=== PATIENT | female | born 1975 | race Caucasian/White ===

== ENCOUNTER 2020-04-27 16:39 | Emergency (ER) | payer OTHER, SELFPAY ==
[2020-04-27 17:01] VITALS: BP 186/105; PULSE 107; RESP 16; TEMP 37; O2SAT 98; BMI 48.4
--- NOTE | 2020-04-27 17:27 | HMH.EDUTC ---
[facility] [place] Disposition Clinical Impression: Left otitis media Qualifiers: Otitis media type: suppurative Chronicity: acute Recurrence: non-recurrent Spontaneous tympanic membrane rupture: without spontaneous rupture Qualified Code(s): H66.002 - Acute suppurative otitis media without spontaneous rupture of ear drum, left ear Pharyngitis Qualifiers: Pharyngitis/tonsillitis etiology: unspecified etiology Qualified Code(s): J02.9 - Acute pharyngitis, unspecified Disposition: Home, Self-Care Condition on Discharge: Good Instructions: Middle Ear Infection Additional Instructions: Drink plenty of fluids. Take tylenol or ibuprofen for pain or fever. Take the medications as directed. Follow up with your regular doctor. GO TO THE ER FOR ANY WORSENING SYMPTOMS Prescriptions: Cefdinir [Omnicef 300mg Capsule] 300 mg PO BID #20 cap Transmission Status: Received by [facility] Referrals: Fabrizio Perez MD [Primary Care Provider] - Time of Disposition: 17:39 Medical Decision Making - Medical Records Medical records reviewed: No: I reviewed the patient's medical records. - Ze Inquiry Pt receiving controlled substance: No Vital Signs: 04/27/20 17:01 04/27/20 17:46 Temperature 98.6 F 98.6 F Temperature Source Oral Pulse Rate 89 Pulse Rate [Left] 107 H Respiratory Rate 16 17 Blood Pressure 154/89 H Blood Pressure [Right Arm] 186/105 H Blood Pressure Mean [Right Arm] 132 Blood Pressure Source [Right Arm] Automatic Cuff Blood Pressure Position [Right Arm] Sitting 02 Sat by Pulse Oximetry 98 Oxygen Delivery Method Room Air [facility] [place] HPI - General Stated complaint: l ear pain,throat Time Seen by Provider: 04/27/20 17:31 Mode of Arrival: Ambulatory Source of Information: Patient Limitations: No Limitations Description of Symptoms (Recalled from Triage Doc. by RN): Left ear and tonsil pain when I swallow HEENT Symptoms (Recalled from RN notes): Yes Resp Symptoms (Recalled from RN notes): No Skin Symptoms (Recalled from RN notes): No MS Symptoms (Recalled from RN notes): No Functional Status (Recalled from RN notes): wnl - History of Present Illness Provider Complaint: She c/o left ear pain and sore throat for the past 3 days. - Related Data Home Medications Medication Instructions Recorded Confirmed Amitriptyline HCl [Elavil 25mg 25 mg PO DAILY 05/18/18 05/18/18 tablet] Buspirone HCl [Buspar 5mg tablet] 5 mg PO BID 05/18/18 05/18/18 Loratadine [Claritin 10mg 10 mg PO DAILY 05/18/18 05/18/18 Tablet] Montelukast Sodium [Montelukast 10 mg PO HS 05/18/18 05/18/18 10mg Tab] Sertraline HCl [Zoloft 100mg 150 mg PO DAILY 05/18/18 05/18/18 tablet] Previous Rx's Medication Instructions Recorded Azithromycin [Z-Steven 250mg Tab*] 250 mg PO UD DOSE PK #6 tab 06/19/18 Fluticasone Propionate [Flonase 2 spr NS DAILY #1 bottle 06/19/18 50mcg nasal spray 16gm] predniSONE [Prednisone 5mg Tab 5 mg PO UD DOSE PK #21 pack 06/19/18 Dose-Pack] Cefdinir [Omnicef 300mg Capsule] 300 mg PO BID #20 cap 04/27/20 Allergies Allergy/AdvReac Type Severity Reaction Status Date / Time acetaminophen Allergy Severe S-ANAPHYLAX Verified 04/27/20 17:08 [From TYLENOL-CODEINE #3] IS codeine Allergy Severe S-ANAPHYLAX Verified 04/27/20 17:08 [From TYLENOL-CODEINE #3] IS erythromycin base Allergy Unknown I-RASH Verified 04/27/20 17:08 [ERYTHROMYCIN BASE] Macrolide Antibiotics Allergy Unknown I-RASH Verified 04/27/20 17:08 [MACROLIDE ANTIBIOTICS] oxaprozin [From DAYPRO] Allergy Unknown NA-NAUSEA/V Verified 04/27/20 17:08 OMITING Penicillins [PENICILLINS] Allergy Unknown I-RASH Verified 04/27/20 17:08 - Worker's Comp Is this a Worker's Comp case?: No Is this an [facility] Worker's Comp?: No Is this a [facility] Worker's Comp?: No H History - Hepatitis A Screen Drug use history?: No High risk sexual behaviors?: No History of sexually transmitted infection?:
[2020-04-27 17:46] VITALS: BP 154/89; PULSE 89; RESP 17; TEMP 37
== END 2020-04-27 17:47 | disposition home or self-care (01) ==
PROVIDERS: Emergency Provider Nurse Practitioner Family; PCP Family Medicine
DX: H66.002 Acute suppurative otitis media without spontaneous rupture of ear drum, left ear (principal); J02.9 Acute pharyngitis, unspecified; F41.8 Other specified anxiety disorders; E03.9 Hypothyroidism, unspecified; Z88.0 Allergy status to penicillin; Z88.5 Allergy status to narcotic agent; Z79.899 Other long term (current) drug therapy
CPT/HCPCS: 99201

== ENCOUNTER → 2020-07-07 13:59 | Outpatient (CLI) | payer OTHER, SELFPAY ==
--- NOTE | 2020-07-07 14:04 | XR_ITS ---
PROCEDURE: XR LUMBAR SPINE MIN 4V CLINICAL INDICATION: LOW BACK PAIN COMPARISON: No exams were available for comparison FINDINGS: There is normal curvature and alignment. All lumbar vertebrae appear intact. There is minor osteophytic spurring at the L2-3 level and the anterior superior border of L4. There is no pars defect. SI joints are normal. There are moderate hypertrophic facet changes at the L4-5 and L5-S1 levels. IMPRESSION: Hypertrophic facet changes lower lumbar spine and minor degenerate disc disease L2-3 Dictated by: Dr. Jose Gabriel MD 07/07/2020 14:29 Dr. Jose Gabriel MD in [place] 07/07/2020 14:29
== END ==
PROVIDERS: PCP Family Medicine; Visit Provider Family Medicine
DX: M54.5 Low back pain (principal)
CPT/HCPCS: 72110

== ENCOUNTER → 2021-01-20 09:00 | Outpatient (CLI) | payer OTHER, SELFPAY ==
--- NOTE | 2021-01-20 09:01 | MR_ITS ---
PROCEDURE: MR LUMBAR SPINE WO CON CLINICAL INDICATION: LOW BACK PAIN, LUMBAR DEGENERATIVE DISC DISEASE COMPARISON: CR XR LUMBAR SPINE MIN 4V from 07/07/2020 TECHNIQUE: Standard multiplanar multiecho sequences are performed without contrast. 3-D MIP and myelographic images are also rendered and reviewed FINDINGS: There is normal alignment. The spinal cord ends at the L1 level. No acute fracture or dislocation. The L1-L2: Unremarkable. L2-L3: Unremarkable. L3-L4: Unremarkable. L4-5: Mild facet hypertrophic changes with mild bilateral foraminal narrowing L5-S1: Unremarkable. No extruded herniated disc evident. IMPRESSION: Mild facet hypertrophic changes at L4-5 with mild bilateral foraminal narrowing. No extruded herniated disc canal stenosis or other significant anomaly. Dictated by: Johnathan Lloyd MD 01/21/2021 07:13 Johnathan Lloyd MD in [place] 01/21/2021 07:13
== END ==
PROVIDERS: PCP Family Medicine; Visit Provider Nurse Practitioner Family
DX: M54.5 Low back pain (principal); M51.36 Other intervertebral disc degeneration, lumbar region
CPT/HCPCS: 72148; 76376

== ENCOUNTER 2021-04-16 09:02 | Emergency (ER) | payer OTHER, SELFPAY ==
[2021-04-16 09:10] VITALS: BP 152/105; PULSE 99; RESP 22; TEMP 37.4; O2SAT 97; BMI 48.2
--- NOTE | 2021-04-16 09:33 | HMH.EDUTC ---
[facility] [place] Clinical Impression: Viral syndrome Acute bronchitis Qualifiers: Bronchitis organism: unspecified organism Qualified Code(s): J20.9 - Acute bronchitis, unspecified Disposition: Home, Self-Care Condition on Discharge: Good Instructions: DI for Acute Bronchitis, DI for Viral Syndrome, DI for COVID-19 (Suspected or Confirmed ), Preventing the Spread of Coronavirus Discharge Instructions Additional Instructions: Drink plenty of fluids. Take tylenol or ibuprofen for pain or fever. Take the medications as directed. Follow up with your regular doctor. GO TO THE ER FOR ANY WORSENING SYMPTOMS Quarantine until you know the results of your covid-19 test. If it is positive, the health department should call you and give you further instructions about your length of Quarantine and other things. Notify your school or workplace of your results and follow their instructions regarding return to work/school. The cough medication (promethazine dm) will make you drowsy, so don't drive or operate heavy machinery after taking it. Prescriptions: Promethazine/Dextromethorphan [Promethazine-Dm Syrup] 5 ml PO Q6HP PRN #240 ml PRN Reason: Cough Transmission Status: Received by [facility] Ondansetron [Zofran 4mg ODT] 4 mg PO Q8HP PRN #20 tab PRN Reason: Nausea Transmission Status: Received by [facility] methylPREDNISolone [Medrol] 4 mg PO DIRECTED 6 Days #21 packet Transmission Status: Received by [facility] guaiFENesin [Mucinex 600mg tablet] 1 - 2 tab PO BIDP PRN #30 tab PRN Reason: Congestion Transmission Status: Received by [facility] Cefdinir [Omnicef 300mg Capsule] 300 mg PO BID #20 cap Transmission Status: Received by [facility] Referrals: Fabrizio Perez MD [Primary Care Provider] - Time of Disposition: 09:55 Medical Decision Making - Medical Records Medical records reviewed: No: I reviewed the patient's medical records. - Ze Inquiry Pt receiving controlled substance: No Vital Signs: 04/16/21 09:10 04/16/21 09:58 Temperature 99.3 F 99.3 F Temperature Source Oral Pulse Rate 99 H Pulse Rate [Left Brachial] 99 H Respiratory Rate 22 22 Blood Pressure 152/105 H Blood Pressure [Left Arm] 152/105 H Blood Pressure Mean [Left Arm] 120 Blood Pressure Source [Left Arm] Automatic Cuff Blood Pressure Position [Left Arm] Sitting 02 Sat by Pulse Oximetry 97 Oxygen Delivery Method Room Air - Lab Data Lab results reviewed: Yes: I reviewed the patient's lab results. [facility] [place] - General Stated complaint: bronchitis Time Seen by Provider: 04/16/21 09:33 - History of Present Illness Provider Complaint: She c/o cough and congestion for the past 2 days. She has been running a fever and chilling. She denies shortness of breath at this time. - Related Data Home Medications Medication Instructions Recorded Confirmed Buspirone HCl [Buspar 5mg tablet] 5 mg PO BID 05/18/18 04/16/21 Loratadine [Claritin 10mg 10 mg PO DAILY 05/18/18 04/16/21 Tablet] Furosemide [Lasix 20mg tab] 20 mg PO DAILY 04/16/21 04/16/21 Sertraline HCl [Zoloft 100mg 100 mg PO DAILY 04/16/21 04/16/21 tablet] Tramadol HCl [Tramadol 50mg 50 mg PO Q6HP PRN 04/16/21 04/16/21 Tab] Previous Rx's Medication Instructions Recorded Cefdinir [Omnicef 300mg Capsule] 300 mg PO BID #20 cap 04/16/21 Ondansetron [Zofran 4mg ODT] 4 mg PO Q8HP PRN #20 tab 04/16/21 Promethazine/Dextromethorphan 5 ml PO Q6HP PRN #240 ml 04/16/21 [Promethazine-Dm Syrup] guaiFENesin [Mucinex 600mg tablet] 1 - 2 tab PO BIDP PRN #30 tab 04/16/21 methylPREDNISolone [Medrol] 4 mg PO DIRECTED 6 Days #21 04/16/21 packet Allergies Allergy/AdvReac Type Severity Reaction Status Date / Time acetaminophen Allergy Severe S-ANAPHYLAX Verified 04/27/20 17:08 [From TYLENOL-CODEINE #3] IS codeine Allergy Severe S-ANAPHYLAX Verified 04/27/20 17:08 [From TY
[2021-04-16 09:58] VITALS: BP 152/105; PULSE 99; RESP 22; TEMP 37.4; O2SAT 97
== END 2021-04-16 10:02 | disposition home or self-care (01) ==
PROVIDERS: Emergency Provider Nurse Practitioner Family; PCP Family Medicine
DX: U07.1 COVID-19 (principal); J20.9 Acute bronchitis, unspecified
CPT/HCPCS: 99202; C9803; G0463; U0003; U0005

== ENCOUNTER 2021-06-24 10:30 | Emergency (ER) | payer OTHER, SELFPAY ==
[2021-06-24 11:01] VITALS: BP 131/93; PULSE 91; RESP 19; TEMP 37.1; O2SAT 100; BMI 46.3
--- NOTE | 2021-06-24 11:38 | HMH.EDUTC ---
[facility] [place]: [place]us[place] Disposition: Home, Self-Care Condition on Discharge: Good Instructions: Sinusitis, DI for Sinusitis Additional Instructions: *Monitor Temp, Over the counter Motrin or Tylenol as directed/as needed Tylenol every 4 hours and Motrin every 6 hours (as long as your family doctor has told you that you can take it) for fever or pain. and straight to ER if unable to lower temp less than 101.0 after medication given *Warm salt water gargles may help to soothe the throat *Throat Lozenges *Warm fluids like tea with honey may help to soothe the throat *Sleep elevated *Humidifier/Vaporizer Take medication as prescribed Return if needed Follow up IMMEDIATELY for new or worsening symptoms or no Noticeable improvement over the next 48-72 hours. 911 for difficulty breathing or swallowing Prescriptions: methylPREDNISolone [Medrol 4mg tab] 4 mg PO DIRECTED #21 tab Transmission Status: Pending to [facility] guaiFENesin [Mucinex 600mg tablet] 1 - 2 mg PO BID PRN #20 tab PRN Reason: Congestion Transmission Status: Pending to [facility] Cefdinir [Omnicef 300mg Capsule] 300 mg PO BID #20 cap Transmission Status: Pending to [facility] Referrals: Fabrizio Perez MD [Primary Care Provider] - As needed Time of Disposition: 11:43 Medical Decision Making - Ze Inquiry Pt receiving controlled substance: No Ze was queried for this patient: No Vital Signs: 06/24/21 11:01 Temperature 98.7 F Temperature Source Oral Pulse Rate [Right Radial] 91 H Respiratory Rate 19 Blood Pressure [Right Arm] 131/93 H Blood Pressure Mean [Right Arm] 105 Blood Pressure Source [Right Arm] Automatic Cuff Blood Pressure Position [Right Arm] Sitting 02 Sat by Pulse Oximetry 100 Oxygen Delivery Method Room Air Medical Decision Narrative: Patient states that she has taken cefdinir in the past without reactions or complications [facility] [place] - General Stated complaint: possible sinus inf Time Seen by Provider: 06/24/21 11:38 Mode of Arrival: Ambulatory Source of Information: Patient Limitations: No Limitations Description of Symptoms (Recalled from Triage Doc. by RN): C/O sinus pressure and congestion x3 days HEENT Symptoms (Recalled from RN notes): Yes (sinus pressure/congestion) Resp Symptoms (Recalled from RN notes): No Skin Symptoms (Recalled from RN notes): No MS Symptoms (Recalled from RN notes): No Functional Status (Recalled from RN notes): n/a - History of Present Illness Provider Complaint: Patient state that she has been having sinus pain and pressure and pressure like feeling in her ears States that she feels like she may have a sinus infection - Related Data Home Medications Medication Instructions Recorded Confirmed Buspirone HCl [Buspar 5mg tablet] 5 mg PO BID 05/18/18 04/16/21 Loratadine [Claritin 10mg 10 mg PO DAILY 05/18/18 04/16/21 Tablet] Furosemide [Lasix 20mg tab] 20 mg PO DAILY 04/16/21 04/16/21 Sertraline HCl [Zoloft 100mg 100 mg PO DAILY 04/16/21 04/16/21 tablet] Tramadol HCl [Tramadol 50mg 50 mg PO Q6HP PRN 04/16/21 04/16/21 Tab] Previous Rx's Medication Instructions Recorded Cefdinir [Omnicef 300mg Capsule] 300 mg PO BID #20 cap 04/16/21 Ondansetron [Zofran 4mg ODT] 4 mg PO Q8HP PRN #20 tab 04/16/21 Promethazine/Dextromethorphan 5 ml PO Q6HP PRN #240 ml 04/16/21 [Promethazine-Dm Syrup] guaiFENesin [Mucinex 600mg tablet] 1 - 2 tab PO BIDP PRN #30 tab 04/16/21 methylPREDNISolone [Medrol] 4 mg PO DIRECTED 6 Days #21 04/16/21 packet Cefdinir [Omnicef 300mg Capsule] 300 mg PO BID #20 cap 06/24/21 guaiFENesin [Mucinex 600mg tablet] 1 - 2 mg PO BID PRN #20 tab 06/24/21 methylPREDNISolone [Medrol 4mg 4 mg PO DIRECTED #21 tab 06/24/21 tab] Allergies Allergy/AdvReac Type Severity Reaction Status Date / Time acetaminophen Allergy Severe S-ANAPHYLAX Verified 04/27/20 17:08 [From
[2021-06-24 12:45] VITALS: BP 131/91; PULSE 91; RESP 18; TEMP 37.1; O2SAT 100
== END 2021-06-24 12:45 | disposition home or self-care (01) ==
PROVIDERS: Emergency Provider Nurse Practitioner; PCP Family Medicine
DX: J01.90 Acute sinusitis, unspecified (principal)
CPT/HCPCS: 99202; G0463